=== PATIENT | male | born 1965 | race Caucasian/White ===

== ENCOUNTER 2024-01-22 11:42 | Outpatient (CLI) | payer BC, SELFPAY ==
--- NOTE | 2024-01-22 12:51 | W.ANESCHARGE ---
Anesthesia Charges Start Date/Time Anesthesia Start Date: 01/22/24 Anesthesia Start Time: 12:23 Stop Date/Time Anesthesia Stop Date: 01/22/24 Anesthesia Stop Time: 12:46
--- NOTE | 2024-01-22 13:27 | W.ANESCHARGE ---
Anesthesia Charges Start Date/Time Anesthesia Start Date: 01/22/24 Anesthesia Start Time: 12:23 Stop Date/Time Anesthesia Stop Date: 01/22/24 Anesthesia Stop Time: 12:46
== END 2024-01-22 11:43 | disposition home or self-care (01) ==
LOC: OP CLINIC 11:48
PROVIDERS: PCP Physician Assistant; Visit Provider Internal Medicine Gastroenterology
DX: Z12.11 Encounter for screening for malignant neoplasm of colon (principal); D12.2 Benign neoplasm of ascending colon; D12.5 Benign neoplasm of sigmoid colon
CPT/HCPCS: 00811; 45380; 45385; 88305; J2704